=== PATIENT | female | born 1975 | race Caucasian/White ===

== ENCOUNTER 2020-05-15 11:31 | Outpatient (REF) | payer OTHER, SELFPAY | END 2020-05-15 11:32 | disposition home or self-care (01) | LOC: HO.BBR 11:31 | PROVIDERS: PCP Internal Medicine; Visit Provider Internal Medicine | DX: D75.1 Secondary polycythemia (principal) | CPT/HCPCS: 36415; 85014; 85018; 99195 ==

== ENCOUNTER 2020-08-29 13:02 | Outpatient (REF) | payer OTHER, SELFPAY | END 2020-08-29 13:03 | disposition home or self-care (01) | LOC: HO.BBR 13:02 | PROVIDERS: PCP Internal Medicine; Visit Provider Internal Medicine | DX: D75.1 Secondary polycythemia (principal) | CPT/HCPCS: 85018 ==

== ENCOUNTER 2020-09-10 12:19 | Outpatient (REF) | payer OTHER, SELFPAY | END 2020-09-10 12:20 | disposition home or self-care (01) | LOC: HO.BBR 12:19 | PROVIDERS: PCP Internal Medicine; Visit Provider Internal Medicine | DX: D75.1 Secondary polycythemia (principal) | CPT/HCPCS: 85014; 85018; 99195 ==

== ENCOUNTER 2021-03-13 12:45 | Outpatient (REF) | payer OTHER, SELFPAY | END 2021-03-13 12:46 | disposition home or self-care (01) | LOC: HO.BBR 12:45 | PROVIDERS: PCP Internal Medicine; Visit Provider Internal Medicine | DX: D75.1 Secondary polycythemia (principal) | CPT/HCPCS: 85018; 99195 ==

== ENCOUNTER 2021-08-28 08:56 | Outpatient (REF) | payer OTHER, SELFPAY | END 2021-08-28 08:57 | disposition home or self-care (01) | LOC: HO.BBR 08:56 | PROVIDERS: Visit Provider Internal Medicine | DX: D75.1 Secondary polycythemia (principal) | CPT/HCPCS: 85018; 99195 ==

== ENCOUNTER 2021-12-23 08:57 | Outpatient (REF) | payer OTHER, SELFPAY | END 2021-12-23 08:58 | disposition home or self-care (01) | LOC: HO.BBR 08:57 | PROVIDERS: Visit Provider Internal Medicine | DX: D75.1 Secondary polycythemia (principal) | CPT/HCPCS: 85018; 99195 ==

== ENCOUNTER 2022-04-27 12:01 | Outpatient (REF) | payer OTHER, SELFPAY | END 2022-04-27 12:02 | disposition home or self-care (01) | LOC: HO.BBR 12:01 | PROVIDERS: PCP Internal Medicine; Visit Provider Internal Medicine | DX: D75.1 Secondary polycythemia (principal) | CPT/HCPCS: 85014; 85018; 99195 ==

== ENCOUNTER 2022-09-14 09:59 | Outpatient (REF) | payer OTHER, SELFPAY | END 2022-09-14 10:00 | disposition home or self-care (01) | LOC: HO.BBR 09:59 | PROVIDERS: Visit Provider Internal Medicine Medical Oncology | DX: D75.1 Secondary polycythemia (principal) | CPT/HCPCS: 85014; 85018; 99195 ==

== ENCOUNTER 2023-03-16 10:45 | Outpatient (REF) | payer OTHER, SELFPAY | END 2023-03-16 10:46 | disposition home or self-care (01) | LOC: HO.BBR 10:45 | PROVIDERS: PCP Internal Medicine; Visit Provider Internal Medicine | DX: D75.1 Secondary polycythemia (principal) | CPT/HCPCS: 85014; 85018; 99195 ==

== ENCOUNTER 2023-09-28 09:04 | Outpatient (REF) | payer OTHER, SELFPAY | END 2023-09-28 09:05 | disposition home or self-care (01) | LOC: HO.BBR 09:04 | PROVIDERS: PCP Internal Medicine; Visit Provider Internal Medicine | DX: D45 Polycythemia vera (principal) | CPT/HCPCS: 85018; 99195 ==

== ENCOUNTER 2023-12-29 09:06 | Outpatient (REF) | payer OTHER, SELFPAY | END 2023-12-29 09:07 | disposition home or self-care (01) | LOC: HO.BBR 09:06 | PROVIDERS: PCP Internal Medicine; Visit Provider Internal Medicine | DX: D45 Polycythemia vera (principal) | CPT/HCPCS: 85018; 99195 ==